=== PATIENT | female | born 1970 | race Caucasian/White ===

== ENCOUNTER → 2016-07-18 | Outpatient (CLI) | payer MEDICARE, OTHER ==
--- NOTE | 2016-07-19 11:33 | MM ---
Reason for exam: screening (asymptomatic). Last mammogram was performed 1 year and 4 months ago. History: Took hormonal contraceptives for 1 year beginning at age 20. Physical Findings: A clinical breast exam by your physician is recommended on an annual basis and results should be correlated with mammographic findings. MG 3D Screening Mammo W/Cad Bilateral CC and MLO view(s) were taken. Prior study comparison: March 04, 2015, bilateral MG screening mammo w CAD. The breast tissue is heterogeneously dense. This may lower the sensitivity of mammography. No significant changes when compared with prior studies. ASSESSMENT: Negative, BI-RAD 1 RECOMMENDATION: Routine screening mammogram of both breasts in 1 year.
== END | disposition home or self-care (01) ==
LOC: RADMAMWWP 10:08
PROVIDERS: ATTEND Family Medicine
DX: Z12.31 Encounter for screening mammogram for malignant neoplasm of breast (principal)
CPT/HCPCS: 77063; G0202

== ENCOUNTER 2016-10-23 20:13 | Emergency (ER) | payer MEDICARE, OTHER ==
[2016-10-23 20:30] VITALS: BP 161/89; PULSE 91; RESP 18; TEMP 98.2
--- NOTE | 2016-10-23 20:35 | ED ---
Eye Problem HPI - General Chief complaint: Eye Problems Stated complaint: "pink eye" Time Seen by Provider: 10/23/16 20:31 Source: patient, RN notes reviewed Mode of arrival: ambulatory Limitations: no limitations - History of Present Illness Initial comments: 46-year-old female presents for a red irritated eye with purulent type drainage. Patient states it was crusted shut. Patient states it is itching. Patient states she believes she has pinkeye. Patient denies any changes in vision. Patient states she is not currently having any other symptoms at this time. Patient denies any recent fever, chills, shortness of breath, chest pain, back pain, abdominal pain, nausea vomiting, numbness or tingling, dysuria or hematuria, constipation or diarrhea, headaches or visual changes, or any other current symptoms. - Related Data Home Medications Medication Instructions Recorded Confirmed Beclomethasone Dipropionate [Qvar 1 dose INHALATION DIRECTED PRN 01/22/14 80 mcg/puff] Cholecalciferol [Vitamin D3] 1,000 units PO DAILY 01/22/14 03/09/16 Etodolac [Lodine] 400 mg PO BID 01/22/14 02/06/16 Gabapentin [Gabapentin] 400 mg PO BID 01/22/14 03/09/16 Lisinopril [Lisinopril] 40 mg PO BID 01/22/14 03/09/16 Loratadine [Loratadine] 10 mg PO DAILY 01/22/14 03/09/16 Potassium Gluconate 99 mg PO DAILY 01/22/14 03/09/16 amLODIPine [amLODIPine] 10 mg PO DAILY 01/22/14 03/09/16 cloNIDine HCL [cloNIDine HCL] 0.3 mg PO DAILY 01/22/14 03/09/16 Budesonide-Formot 160-4.5 Mcg 2 puff INHALATION BID 03/04/14 03/09/16 [Symbicort 160-4.5 Mcg Inhaler] Previous Rx's Medication Instructions Recorded Albuterol Sulfate (Bottle) 5 mg INHALATION Q4-6H #20 nebu 01/22/14 [Ventolin] Sulfamethoxazole/Trimethoprim 1 each PO Q12H #20 tab 12/24/14 [Bactrim DS 800-160 mg] Albuterol Nebulized [Ventolin 2.5 mg INHALATION Q6H #24 nebu 04/04/15 Nebulized] Acetaminophen with Codeine 1 tab PO Q4H PRN #20 tab 03/10/16 [Tylenol w/codeine #3] Sulfamethoxazole/Trimethoprim 1 tab PO Q12H #8 tab 03/10/16 [Bactrim DS 800-160 mg] Tobramycin 0.3% Ophth Oint [Tobrex 1 applic BOTH EYES TID #1 tube 10/23/16 0.3% Ophth Oint] Allergies Allergy/AdvReac Type Severity Reaction Status Date / Time prochlorperazine edisylate Allergy Anaphylaxis Verified 03/09/16 23:44 [From Compazine] prochlorperazine maleate Allergy Anaphylaxis Verified 03/09/16 23:44 [From Compazine] morphine AdvReac Nausea & Verified 10/23/16 20:30 Vomiting Review of Systems ROS Statement: Those systems with pertinent positive or pertinent negative responses have been documented in the HPI. ROS Other: All systems not noted in ROS Statement are negative. Past Medical History Past Medical History: Asthma, Fibromyalgia, Hypertension Additional Past Medical History / Comment(s): ARTHRITIS, CONCUSSION, UTI History of Any Multi-Drug Resistant Organisms: ESBL Date of last positivie culture/infection: 03/23/2014 MDRO Source:: Urine-ESBL E.coli Past Surgical History: Hysterectomy, Orthopedic Surgery, Tubal Ligation Additional Past Surgical History / Comment(s): gastric sleep Past Psychological History: Depression Smoking Status: Never smoker Past Alcohol Use History: Rare Past Drug Use History: None Reported General Exam Limitations: no limitations General appearance: alert, in no apparent distress Head exam: Present: atraumatic, normocephalic, normal inspection Eye exam: Present: PERRL, EOMI, conjunctival injection, other (purulent Drainage noted). Absent: scleral icterus, periorbital swelling, periorbital tenderness Neck exam: Present: normal inspection. Absent: tenderness, meningismus, lymphadenopathy Respiratory exam: Present: normal lung sounds bilaterally. Absent: respiratory distress, wheezes, rales, rhonchi, stridor Cardiovascular Exam: Present: regular rate, normal rhythm, normal heart sounds. Absent: systolic murmur, diastolic murmur, rubs, gallop, clicks Neurological exam: Present: alert, oriented X3 Psychiatric exam: Present: normal affect, normal mood Skin exam: Present: warm, dry, intact, normal color. Absent: rash Course Vital Signs 10/23/16 20:28 Temperature 98.2 F Pulse Rate 91 Respiratory 18 Rate Blood Pressure 161/89 O2 Sat by Pulse 98 Oximetry Medical Decision Making - Medical Decision Making 46 shows no presents for what appears to be conjunctivitis. This time we'll start the patient on antibiotic ointment. We discussed follow-up return parameters. We discussed all patient's questions. She stated she understood and she isn't. Plan. She'll be discharged home. Disposition Clinical Impression: Bacterial conjunctivitis Disposition: HOME SELF-CARE Condition: Stable Instructions: Conjunctivitis (ED) Additional Instructions: Please use medication as discussed. Please follow up with family doctor if symptoms have not improved over the next two days. Please return to the emergency room if your symptoms increase or worsen or for any other concerns. Prescriptions: Tobramycin 0.3% Ophth Oint [Tobrex 0.3% Ophth Oint] 1 applic BOTH EYES TID #1 tube Referrals: Veronika Parada MD [Primary Care Provider] - 1-2 days Time of Disposition: 20:34
== END 2016-10-23 20:40 | disposition home or self-care (01) ==
LOC: EC 20:13
DX: H10.9 Unspecified conjunctivitis (principal); J45.909 Unspecified asthma, uncomplicated; M79.7 Fibromyalgia; I10 Essential (primary) hypertension; Z79.51 Long term (current) use of inhaled steroids; Z79.899 Other long term (current) drug therapy; Z88.5 Allergy status to narcotic agent; Z88.8 Allergy status to other drugs, medicaments and biological substances
CPT/HCPCS: 99283

== ENCOUNTER 2017-01-16 15:26 | Emergency (ER) | payer MEDICARE, OTHER ==
--- NOTE | 2017-01-16 16:06 | ED ---
General Adult HPI - General Chief complaint: Urogenital Stated complaint: UTI Time Seen by Provider: 01/16/17 15:53 Source: patient, RN notes reviewed Mode of arrival: ambulatory Limitations: no limitations - History of Present Illness Initial comments: Patient 46-year-old female who presents emergency room today with a chief complaint of UTI symptoms. Patient does admit that she's had increased urinary frequency. Increased dysuria. States the symptoms started approximately 45 days ago. She states she was using some [id number] medication of Azo along with cranberry pills. States she began feeling better. States symptoms returned this morning. Patient denies any other complaints or symptoms at this time. Patient denies any recent fever, chills, shortness of breath, chest pain, back pain, nausea or vomiting, numbness or tingling, constipation or diarrhea, headaches or visual changes, or any other complaints. - Related Data Home Medications Medication Instructions Recorded Confirmed Beclomethasone Dipropionate [Qvar 1 puff INHALATION RT-BID PRN 01/22/14 01/16/17 80 mcg/puff] Cholecalciferol [Vitamin D3] 1,000 units PO DAILY 01/22/14 01/16/17 Gabapentin [Gabapentin] 400 mg PO TID PRN 01/22/14 01/16/17 cloNIDine HCL [cloNIDine HCL] 0.3 mg PO HS PRN 01/22/14 01/16/17 Albuterol Nebulized [Ventolin 2.5 mg INHALATION RT-QID PRN 01/16/17 01/16/17 Nebulized] Cranberry Fruit Extract [Cranberry] 500 mg PO DAILY 01/16/17 01/16/17 Cyanocobalamin (Vitamin B-12) 2,500 mcg PO DAILY 01/16/17 01/16/17 [Vitamin B12] Cyclobenzaprine [Flexeril] 10 mg PO HS PRN 01/16/17 01/16/17 Glucosamine Sulfate 1,000 mg PO DAILY 01/16/17 01/16/17 Lisinopril [Zestril] 10 mg PO DAILY 01/16/17 01/16/17 Montelukast [Singulair] 10 mg PO HS 01/16/17 01/16/17 Omeprazole 20 mg PO DAILY 01/16/17 01/16/17 Previous Rx's Medication Instructions Recorded Ciprofloxacin HCl [Cipro] 500 mg PO Q12HR #20 day 01/16/17 Phenazopyridine [Pyridium] 100 mg PO TID 3 Days 01/16/17 Allergies Allergy/AdvReac Type Severity Reaction Status Date / Time prochlorperazine Allergy Anaphylaxis Verified 01/16/17 16:44 morphine AdvReac Nausea & Verified 01/16/17 16:44 Vomiting Blood Review of Systems ROS Statement: Those systems with pertinent positive or pertinent negative responses have been documented in the HPI. ROS Other: All systems not noted in ROS Statement are negative. Past Medical History Past Medical History: Asthma, Fibromyalgia, Hypertension Additional Past Medical History / Comment(s): ARTHRITIS, CONCUSSION, UTI History of Any Multi-Drug Resistant Organisms: ESBL Date of last positivie culture/infection: 03/23/2014 MDRO Source:: Urine-ESBL E.coli Past Surgical History: Hysterectomy, Orthopedic Surgery, Tubal Ligation Additional Past Surgical History / Comment(s): gastric sleep Past Psychological History: Depression Smoking Status: Never smoker Past Alcohol Use History: Rare Past Drug Use History: None Reported General Exam - General Exam Comments Initial Comments: General: The patient is awake and alert, in no distress, and does not appear acutely ill. Eye: Pupils are equal, round and reactive to light, extra-ocular movements are intact. No nystagmus. There is normal conjunctiva bilaterally. No signs of icterus. Ears, nose, mouth and throat: There are moist mucous membranes and no oral lesions. Neck: The neck is supple, there is no tenderness or JVD. Cardiovascular: There is a regular rate and rhythm. No murmur, rub or gallop is appreciated. Respiratory: Lungs are clear to auscultation, respirations are non-labored, breath sounds are equal. No wheezes, stridor, rales, or rhonchi. Gastrointestinal: Soft, non-distended, mild tenderness suprapubic over the bladder. There is no rebound or guarding present. No CVA tenderness. Bowel sounds are unremarkable. Musculoskeletal: Normal ROM, no tenderness. Strength 5/5. Sensation intact. Pulses equal bilaterally 2+. Neurological: A&O x 3. CN II-XII intact, There are no obvious motor or sensory deficits. Coordination appears grossly intact. Speech is normal. Skin: Skin is warm and dry and no rashes or lesions are noted. Psychiatric: Cooperative, appropriate mood & affect, normal judgment. Limitations: no limitations Course Vital Signs 01/16/17 01/16/17 15:36 16:50 Temperature 98.0 F 98.1 F Pulse Rate 90 81 Respiratory 20 18 Rate Blood Pressure 175/97 147/97 O2 Sat by Pulse 99 99 Oximetry Medical Decision Making - Medical Decision Making Patient reexamined at this time shows no signs of distress. Vital stable here in the emergency room. Patient given dose of Rocephin here in the ER. Urinalysis consistent with UTI. Culture pending. Patient be discharged home on antibiotics and Pyridium. Advised return for any fever, increase or worsen his symptoms. She states understanding and is in agreement. - Lab Data Lab Results 01/16/17 01/16/17 Range/Units 16:15 16:15 Urine Color Yellow Urine Appearance Cloudy H (Clear) Urine pH 5.5 (5.0-8.0) Ur Specific [place] 1.022 (1.001-1.035) Urine Protein 1+ H (Negative) Urine Glucose (UA) Negative (Negative) Urine Ketones Negative (Negative) Urine Blood Trace H (Negative) Urine Nitrite Negative (Negative) Urine Bilirubin Negative (Negative) Urine Urobilinogen <2.0 (<2.0) mg/dL Ur Leukocyte Esterase Large H (Negative) Urine RBC 5 (0-5) /hpf Urine WBC 108 H (0-5) /hpf Ur Squamous Epith Cells 5 H (0-4) /hpf Urine Bacteria Few H (None) /hpf Urine Mucus Rare H (None) /hpf Urine Yeast (Budding) Occasional H (None) /hpf Urine HCG, Qual Not Detected (Not Detectd) Disposition Clinical Impression: UTI (urinary tract infection) Disposition: HOME SELF-CARE Condition: Good Instructions: Urinary Tract Infection in Women (ED) Additional Instructions: Please use medication as discussed. Please follow-up with family doctor in the next 2 days of symptoms have not improved. Please return to emergency room if the symptoms increase or worsen or for any other concerns. Prescriptions: Ciprofloxacin HCl [Cipro] 500 mg PO Q12HR #20 day Phenazopyridine [Pyridium] 100 mg PO TID 3 Days Referrals: Veronika Parada MD [Primary Care Provider] - 1-2 days Time of Disposition: 16:56
[2017-01-16 16:48] LABS: Appearance,Urine Cloudy (Clear); Bacteria,Urine Few /hpf; Bilirubin,Urine Negative (Negative); Glucose,Urine (UA) Negative (Negative); Ketones,Urine Negative (Negative); Leukocyte Esterase,Urine Large (Negative); Mucus,Urine Rare /hpf; Nitrite,Urine Negative (Negative); PH, Urine 5.5 (5.0-8.0); Particle Count 3055; Protein,Urine 1+ (Negative); RBC,Urine 5 /hpf (0-5); Specific Gravity,Urine 1.022 (1.001-1.035); Squamous Epithelial Cell,Urine 5 /hpf (0-4); UA Billing (MACRO vs. MICRO) MICRO; Urobilinogen,Urine <2.0 mg/dL (<2.0); WBC,Urine 108 /hpf (0-5)
[2017-01-16 16:51] VITALS: BP 147/97; PULSE 81; RESP 18; TEMP 98.1
[2017-01-16] MEDS ORDERED: cefTRIAXone 1,000 MG VIAL (IM USE) IM STA (16:55)
== END 2017-01-16 17:13 | disposition home or self-care (01) ==
LOC: EC 15:26
DX: N39.0 Urinary tract infection, site not specified (principal); I10 Essential (primary) hypertension; J45.909 Unspecified asthma, uncomplicated; M19.90 Unspecified osteoarthritis, unspecified site; Z79.899 Other long term (current) drug therapy; Z88.5 Allergy status to narcotic agent; Z88.8 Allergy status to other drugs, medicaments and biological substances
CPT/HCPCS: 81001; 81025; 87086; 99283; 96372; J0696; 87077; 87186

== ENCOUNTER 2017-02-23 17:47 | Emergency (ER) | payer MEDICARE, OTHER ==
[2017-02-23 17:54] VITALS: BP 149/91; PULSE 88; RESP 20; TEMP 98.2
--- NOTE | 2017-02-23 18:02 | ED ---
ENT HPI - General Chief complaint: Dental/Oral Stated complaint: mouth pain Time Seen by Provider: 02/23/17 17:55 Source: patient, RN notes reviewed Mode of arrival: ambulatory Limitations: no limitations - History of Present Illness Initial comments: 46-year-old female presents emergency Department chief complaint of left-sided facial pain, dental pain. Patient states started last 24 hours worsen. She states she has been taking Tylenol does alleviate some the symptoms. She states that also when she brushes her gum that makes it feel better. Patient denies fever, chills, night sweats, headache or dizziness. Denies any neck stiffness or neck pain. Patient denies any sore throat, difficulty swallowing at this time. Patient states she did see her dentist a few months back and had some fillings. - Related Data Home Medications Medication Instructions Recorded Confirmed Beclomethasone Dipropionate [Qvar 1 puff INHALATION RT-BID PRN 01/22/14 02/23/17 80 mcg/puff] Cholecalciferol [Vitamin D3] 1,000 units PO DAILY 01/22/14 02/23/17 Gabapentin [Gabapentin] 400 mg PO TID PRN 01/22/14 02/23/17 cloNIDine HCL [cloNIDine HCL] 0.3 mg PO HS PRN 01/22/14 02/23/17 Albuterol Nebulized [Ventolin 2.5 mg INHALATION RT-QID PRN 01/16/17 02/23/17 Nebulized] Cranberry Fruit Extract [Cranberry] 500 mg PO DAILY 01/16/17 02/23/17 Cyanocobalamin (Vitamin B-12) 2,500 mcg PO DAILY 01/16/17 02/23/17 [Vitamin B12] Cyclobenzaprine [Flexeril] 10 mg PO HS PRN 01/16/17 02/23/17 Glucosamine Sulfate 1,000 mg PO DAILY 01/16/17 02/23/17 Lisinopril [Zestril] 10 mg PO DAILY 01/16/17 02/23/17 Montelukast [Singulair] 10 mg PO HS 01/16/17 02/23/17 Omeprazole 20 mg PO DAILY 01/16/17 02/23/17 Previous Rx's Medication Instructions Recorded Ciprofloxacin HCl [Cipro] 500 mg PO Q12HR #20 day 01/16/17 Acetaminophen-Codeine 300-30mg 1 tab PO Q4H PRN #20 tablet 02/23/17 [Tylenol #3] Ibuprofen [Motrin] 600 mg PO Q8HR PRN #30 tab 02/23/17 Penicillin V Potassium [Pen Vee K] 500 mg PO QID #40 tab 02/23/17 Allergies Allergy/AdvReac Type Severity Reaction Status Date / Time prochlorperazine Allergy Anaphylaxis Verified 02/23/17 17:54 morphine AdvReac Nausea & Verified 02/23/17 17:54 Vomiting Blood Review of Systems ROS Statement: Those systems with pertinent positive or pertinent negative responses have been documented in the HPI. ROS Other: All systems not noted in ROS Statement are negative. Past Medical History Past Medical History: Asthma, Fibromyalgia, Hypertension Additional Past Medical History / Comment(s): ARTHRITIS, CONCUSSION, UTI History of Any Multi-Drug Resistant Organisms: ESBL Date of last positivie culture/infection: 03/23/2014 MDRO Source:: Urine-ESBL E.coli Past Surgical History: Hysterectomy, Orthopedic Surgery, Tubal Ligation Additional Past Surgical History / Comment(s): gastric sleep Past Psychological History: Depression Smoking Status: Never smoker Past Alcohol Use History: Rare Past Drug Use History: None Reported General Exam Limitations: no limitations General appearance: alert, in no apparent distress Head exam: Present: atraumatic, normocephalic, normal inspection Eye exam: Present: normal appearance, PERRL, EOMI. Absent: scleral icterus, conjunctival injection, periorbital swelling ENT exam: Present: mucous membranes moist, TM's normal bilaterally, normal external ear exam, other (Mild to moderate tenderness along the left side of the mandible with small localized area of swelling). Absent: normal oropharynx (Tenderness along the left lower dentition with no obvious drainable abscess she does have some mild swelling and erythema of the gumline) Neck exam: Present: normal inspection, full ROM. Absent: tenderness, meningismus, lymphadenopathy Respiratory exam: Present: normal lung sounds bilaterally. Absent: respiratory distress, wheezes, rales, rhonchi, stridor Cardiovascular Exam: Present: regular rate, normal rhythm, normal heart sounds. Absent: systolic murmur, diastolic murmur, rubs, gallop, clicks Course Vital Signs 02/23/17 17:52 Temperature 98.2 F Pulse Rate 88 Respiratory 20 Rate Blood Pressure 149/91 O2 Sat by Pulse 98 Oximetry Medical Decision Making - Medical Decision Making 46-year-old female presented for left sided facial pain. Patient appears to have a dental infection possible early dental abscess. Patient we starting antibiotics, pain medication and followed up with dentist on Saturday return parameters were discussed. Disposition Clinical Impression: Dental abscess, Toothache Disposition: HOME SELF-CARE Condition: Stable Instructions: Dental Abscess (ED) Additional Instructions: Please return to the Emergency Department if symptoms worsen or any other concerns. Prescriptions: Acetaminophen-Codeine 300-30mg [Tylenol #3] 1 tab PO Q4H PRN #20 tablet PRN Reason: pain Ibuprofen [Motrin] 600 mg PO Q8HR PRN #30 tab PRN Reason: Pain Penicillin V Potassium [Pen Vee K] 500 mg PO QID #40 tab Referrals: Veronika Parada MD [Primary Care Provider] - 1-2 days Time of Disposition: 18:02
== END 2017-02-23 18:09 | disposition home or self-care (01) ==
LOC: EC 17:47
DX: K04.7 Periapical abscess without sinus (principal); I10 Essential (primary) hypertension; J45.909 Unspecified asthma, uncomplicated; M19.90 Unspecified osteoarthritis, unspecified site; Z88.5 Allergy status to narcotic agent; Z88.8 Allergy status to other drugs, medicaments and biological substances; Z79.899 Other long term (current) drug therapy
CPT/HCPCS: 99282

== ENCOUNTER 2017-04-09 00:38 | Emergency (ER) | payer MEDICARE, OTHER ==
[2017-04-09] MEDS ORDERED: PENICILLIN V POTASSIUM 250 MG TAB PO STA (01:21)
[2017-04-09] MEDS ORDERED: ONDANSETRON ODT 4 MG TAB PO STA (01:21)
[2017-04-09] MEDS ORDERED: HYDROcodone/APAP 5-325MG 1 EACH TAB PO STA (01:21)
--- NOTE | 2017-04-09 01:25 | ED ---
ENT HPI - General Chief complaint: ENT Stated complaint: Dental Pain Time Seen by Provider: 04/09/17 01:18 Source: patient, RN notes reviewed Mode of arrival: ambulatory Limitations: no limitations - History of Present Illness Initial comments: 47-year-old female presents emergency Department with chief complaint of left upper dental pain. Patient had this one month ago follow-up with a dentist which dentist said that since her symptoms resolved that she did not need any procedures centimeters it returned that she may needed dental extraction or root canal. Patient states over the last few days she's had increased pain she states is so unbearable at this time that she's nauseated. Denies fevers or chills denies any neck pain or neck stiffness. - Related Data Home Medications Medication Instructions Recorded Confirmed Beclomethasone Dipropionate [Qvar 1 puff INHALATION RT-BID PRN 01/22/14 02/23/17 80 mcg/puff] Cholecalciferol [Vitamin D3] 1,000 units PO DAILY 01/22/14 02/23/17 Gabapentin [Gabapentin] 400 mg PO TID PRN 01/22/14 02/23/17 cloNIDine HCL [cloNIDine HCL] 0.3 mg PO HS PRN 01/22/14 02/23/17 Albuterol Nebulized [Ventolin 2.5 mg INHALATION RT-QID PRN 01/16/17 02/23/17 Nebulized] Cranberry Fruit Extract [Cranberry] 500 mg PO DAILY 01/16/17 02/23/17 Cyanocobalamin (Vitamin B-12) 2,500 mcg PO DAILY 01/16/17 02/23/17 [Vitamin B12] Cyclobenzaprine [Flexeril] 10 mg PO HS PRN 01/16/17 02/23/17 Glucosamine Sulfate 1,000 mg PO DAILY 01/16/17 02/23/17 Lisinopril [Zestril] 10 mg PO DAILY 01/16/17 02/23/17 Montelukast [Singulair] 10 mg PO HS 01/16/17 02/23/17 Omeprazole 20 mg PO DAILY 01/16/17 02/23/17 Previous Rx's Medication Instructions Recorded Penicillin V Potassium [Pen Vee K] 500 mg PO QID #40 tab 02/23/17 Acetaminophen-Codeine 300-30mg 1 tab PO Q4H PRN #20 tablet 10/24/17 [Tylenol #3] Ibuprofen [Motrin] 600 mg PO Q8HR PRN #30 tab 04/09/17 Ondansetron Odt [Zofran Odt] 4 mg PO Q8HR PRN #10 tab 04/09/17 Penicillin V Potassium [Pen Vee K] 500 mg PO QID #40 tablet 04/09/17 Allergies Allergy/AdvReac Type Severity Reaction Status Date / Time prochlorperazine Allergy Anaphylaxis Verified 04/09/17 00:48 morphine AdvReac Nausea & Verified 04/09/17 00:48 Vomiting Blood Review of Systems ROS Statement: Those systems with pertinent positive or pertinent negative responses have been documented in the HPI. ROS Other: All systems not noted in ROS Statement are negative. Past Medical History Past Medical History: Asthma, Fibromyalgia, Hypertension Additional Past Medical History / Comment(s): ARTHRITIS, CONCUSSION, UTI History of Any Multi-Drug Resistant Organisms: ESBL Date of last positivie culture/infection: 03/23/2014 MDRO Source:: Urine-ESBL E.coli Past Surgical History: Hysterectomy, Orthopedic Surgery, Tubal Ligation Additional Past Surgical History / Comment(s): gastric sleep Past Psychological History: Depression Smoking Status: Never smoker Past Alcohol Use History: Rare Past Drug Use History: None Reported General Exam Limitations: no limitations General appearance: alert, in no apparent distress Head exam: Present: atraumatic, normocephalic, normal inspection Eye exam: Present: normal appearance, PERRL, EOMI. Absent: scleral icterus, conjunctival injection, periorbital swelling ENT exam: Present: mucous membranes moist. Absent: normal oropharynx (there are dental fillings noted in the left upper region there is mild, recession erythema #19 and 20 no drainable abscess), other Neck exam: Present: normal inspection, full ROM. Absent: tenderness, meningismus, lymphadenopathy Respiratory exam: Present: normal lung sounds bilaterally. Absent: respiratory distress, wheezes, rales, rhonchi, stridor Cardiovascular Exam: Present: regular rate, normal rhythm, normal heart sounds. Absent: systolic murmur, diastolic murmur, rubs, gallop, clicks Course Vital Signs 04/09/17 00:45 Temperature 97.6 F Pulse Rate 77 Respiratory 20 Rate Blood Pressure 168/86 O2 Sat by Pulse 98 Oximetry Medical Decision Making - Medical Decision Making 47-year-old ludwin presented for dental pain. Patient is dental infection no abscess at this time. Patient was started on antibiotics pain medication and advised follow-up with dentist again. Return parameters. Disposition Clinical Impression: Dental infection, Pain, dental Disposition: HOME SELF-CARE Condition: Stable Instructions: Toothache (ED) Additional Instructions: Please return to the Emergency Department if symptoms worsen or any other concerns. Prescriptions: Acetaminophen-Codeine 300-30mg [Tylenol #3] 1 tab PO Q4H PRN #20 tablet PRN Reason: pain Ibuprofen [Motrin] 600 mg PO Q8HR PRN #30 tab PRN Reason: Pain Ondansetron Odt [Zofran Odt] 4 mg PO Q8HR PRN #10 tab PRN Reason: Nausea Penicillin V Potassium [Pen Vee K] 500 mg PO QID #40 tablet Referrals: Veronika Parada MD [Primary Care Provider] - 1-2 days Time of Disposition: 01:25
[2017-04-09 02:34] VITALS: BP 139/80; PULSE 64; RESP 16; TEMP 97
== END 2017-04-09 02:33 | disposition home or self-care (01) ==
LOC: EC 00:38
DX: K04.7 Periapical abscess without sinus (principal); R11.0 Nausea; M79.7 Fibromyalgia; I10 Essential (primary) hypertension; F32.9 Major depressive disorder, single episode, unspecified; Z79.899 Other long term (current) drug therapy; Z88.5 Allergy status to narcotic agent; Z88.8 Allergy status to other drugs, medicaments and biological substances
CPT/HCPCS: 99282

== ENCOUNTER 2017-07-09 20:16 | Emergency (ER) | payer MEDICARE, OTHER ==
[2017-07-09] MEDS ORDERED: PROPARACAINE 0.5% OPHTH DROPS 15 ML BTL BOTH EYES STA (21:32)
[2017-07-09] MEDS ORDERED: CIPROFLOXACIN 0.3% OPHTH SOLN 5 ML BTL LEFT EYE STA (22:07)
--- NOTE | 2017-07-09 22:24 | ED ---
Eye Problem HPI - General Chief complaint: Eye Problems Stated complaint: eye problems Time Seen by Provider: 07/09/17 21:08 Source: patient, RN notes reviewed, old records reviewed Mode of arrival: ambulatory Limitations: no limitations - History of Present Illness Initial comments: Patient is a 47-year-old female patient reports that she has left eye irriattion. She does wear contacts. She thinks that she may have scratched her eye while putting in contact yesterday. Reports that her eyes feel pain It's worse with bright lights. She denies any pain with consensual light. Patient states that she has no other symptoms. No significant Purulent drainage at this time. She reports her eyes is painful, denies significant pain or entrapemnet with EOM. - Related Data Home Medications Medication Instructions Recorded Confirmed Beclomethasone Dipropionate [Qvar 1 puff INHALATION RT-BID PRN 01/22/14 02/23/17 80 mcg/puff] Cholecalciferol [Vitamin D3] 1,000 units PO DAILY 01/22/14 02/23/17 Gabapentin [Gabapentin] 400 mg PO TID PRN 01/22/14 02/23/17 cloNIDine HCL [cloNIDine HCL] 0.3 mg PO HS PRN 01/22/14 02/23/17 Albuterol Nebulized [Ventolin 2.5 mg INHALATION RT-QID PRN 01/16/17 02/23/17 Nebulized] Cranberry Fruit Extract [Cranberry] 500 mg PO DAILY 01/16/17 02/23/17 Cyanocobalamin (Vitamin B-12) 2,500 mcg PO DAILY 01/16/17 02/23/17 [Vitamin B12] Cyclobenzaprine [Flexeril] 10 mg PO HS PRN 01/16/17 02/23/17 Glucosamine Sulfate 1,000 mg PO DAILY 01/16/17 02/23/17 Lisinopril [Zestril] 10 mg PO DAILY 01/16/17 02/23/17 Montelukast [Singulair] 10 mg PO HS 01/16/17 02/23/17 Omeprazole 20 mg PO DAILY 01/16/17 02/23/17 Previous Rx's Medication Instructions Recorded Penicillin V Potassium [Pen Vee K] 500 mg PO QID #40 tab 02/23/17 Acetaminophen-Codeine 300-30mg 1 tab PO Q4H PRN #20 tablet 04/09/17 [Tylenol #3] Ibuprofen [Motrin] 600 mg PO Q8HR PRN #30 tab 04/09/17 Ondansetron Odt [Zofran Odt] 4 mg PO Q8HR PRN #10 tab 04/09/17 Penicillin V Potassium [Pen Vee K] 500 mg PO QID #40 tablet 04/09/17 Ciprofloxacin Ophth Soln [Cipro 1 drops LEFT EYE Q4HR #1 bottle 07/09/17 Ophth Soln] Allergies Allergy/AdvReac Type Severity Reaction Status Date / Time prochlorperazine Allergy Anaphylaxis Verified 04/09/17 00:48 morphine AdvReac Nausea & Verified 04/09/17 00:48 Vomiting Blood Review of Systems ROS Statement: Those systems with pertinent positive or pertinent negative responses have been documented in the HPI. ROS Other: All systems not noted in ROS Statement are negative. Past Medical History Past Medical History: Asthma, Fibromyalgia, Hypertension Additional Past Medical History / Comment(s): ARTHRITIS, CONCUSSION, UTI History of Any Multi-Drug Resistant Organisms: ESBL Date of last positivie culture/infection: 03/23/2014 MDRO Source:: Urine-ESBL E.coli Past Surgical History: Hysterectomy, Orthopedic Surgery, Tubal Ligation Additional Past Surgical History / Comment(s): gastric sleep Past Psychological History: Depression Smoking Status: Never smoker Past Alcohol Use History: Rare Past Drug Use History: None Reported General Exam - General Exam Comments Initial Comments: This is a 47 year old female, no distress. Limitations: no limitations General appearance: alert, in no apparent distress Head exam: Present: atraumatic, normocephalic, normal inspection Eye exam: Present: normal appearance, PERRL, EOMI, other (left eye erythema, evidence of corneal abrasion over 6 oclock position. ). Absent: scleral icterus , conjunctival injection, periorbital swelling Expanded Eyelids: Normal Inspection: Left Pupils: Regular, Round: Left Sclera/Conjunctival: Injection: Left (left eye injection and patient has corneal abrasion over 6 oclock position. ) ENT exam: Present: normal exam, mucous membranes moist Neck exam: Present: normal inspection. Absent: tenderness, meningismus, lymphadenopathy Respiratory exam: Present: normal lung sounds bilaterally. Absent: respiratory distress, wheezes, rales, rhonchi, stridor Extremities exam: Present: normal inspection, full ROM, normal capillary refill. Absent: tenderness, pedal edema, joint swelling, calf tenderness Back exam: Present: normal inspection Course Vital Signs 07/09/17 07/09/17 20:54 22:45 Temperature 97.0 F L 98.0 F Pulse Rate 79 18 L Respiratory 18 78 H Rate Blood Pressure 182/110 133/87 O2 Sat by Pulse 99 99 Oximetry Medical Decision Making - Medical Decision Making 47 year old female with left eye irritation after having after puttnig contact in. She has not worn her contacts as of today. Patient undweent slit lamp exam , evidence of corneal abrasion. Patient has been placed on cipro drops, as well as advised to follow up with opthalmology. Patient advised to discontinue wearing contacts until symptoms have resolved. Advised on return parameters. Disposition Clinical Impression: Corneal abrasion Disposition: HOME SELF-CARE Condition: Good Instructions: Corneal Abrasion (ED) Additional Instructions: Plan antibiotic litmus the eye every 4 hours. Follow-up with ophthalmology. Return to emergency department if any alarming signs or symptoms occur. Prescriptions: Ciprofloxacin Ophth Soln [Cipro Ophth Soln] 1 drops LEFT EYE Q4HR #1 bottle Referrals: Veronika Parada MD [Primary Care Provider] - 1-2 days Art Guidry MD [STAFF PHYSICIAN] - 1-2 days Time of Disposition: 22:22
[2017-07-09 22:46] VITALS: BP 133/87; PULSE 18; RESP 78; TEMP 98
== END 2017-07-09 22:46 | disposition home or self-care (01) ==
LOC: EC 20:16
DX: S05.02XA Injury of conjunctiva and corneal abrasion without foreign body, left eye, initial encounter (principal); J45.909 Unspecified asthma, uncomplicated; I10 Essential (primary) hypertension; Z79.899 Other long term (current) drug therapy; Z88.8 Allergy status to other drugs, medicaments and biological substances; Z88.5 Allergy status to narcotic agent
CPT/HCPCS: 99283

== ENCOUNTER → 2017-08-08 | Outpatient (CLI) | payer MEDICARE, OTHER ==
--- NOTE | 2017-08-12 07:50 | MM ---
Reason for exam: screening (asymptomatic). Last mammogram was performed 1 year and 1 month ago. History: Took hormonal contraceptives for 1 year beginning at age 20. Physical Findings: A clinical breast exam by your physician is recommended on an annual basis and results should be correlated with mammographic findings. MG 3D Screening Mammo W/Cad Bilateral CC and MLO view(s) were taken. Prior study comparison: July 18, 2016, bilateral MG 3d screening mammo w/cad. March 04, 2015, bilateral MG screening mammo w CAD. There are scattered fibroglandular densities. No significant changes when compared with prior studies. ASSESSMENT: Negative, BI-RAD 1 RECOMMENDATION: Routine screening mammogram of both breasts in 1 year.
== END | disposition home or self-care (01) ==
LOC: RADMAMWWP 17:03
PROVIDERS: ATTEND Family Medicine
DX: Z12.31 Encounter for screening mammogram for malignant neoplasm of breast (principal)
CPT/HCPCS: 77063; 77067

== ENCOUNTER 2017-11-16 17:40 | Emergency (ER) | payer MEDICARE, OTHER ==
[2017-11-16 17:48] VITALS: BP 144/83; PULSE 92; RESP 18; TEMP 98.5
--- NOTE | 2017-11-16 18:06 | ED ---
Female Urogenital HPI - General Chief complaint: Urogenital Stated complaint: UTI Time Seen by Provider: 11/16/17 17:51 Source: patient Mode of arrival: ambulatory Limitations: no limitations - History of Present Illness Initial comments: 47-year-old female patient presents to the emergency department today for evaluation of urinary tract infection symptoms. Patient states that she has had urinary tract infections in the past and she feels similar. Patient states that she has been having urinary frequency, urinary urgency, and dysuria. States that she has had hot and cold chills today and has felt mildly nauseated. States that she does have low back pain however this is chronic for her. States she has been taking the urinary pain relief pills [id number] and they are no longer helping. She denies any hematuria with this. Denies any flank pain. Patient denies any recent rash, fever, shortness breath, chest pain, abdominal pain, diarrhea, constipation, numbness, tingling, dizziness, weakness, headache, visual changes, or any other complaints. - Related Data Home Medications Medication Instructions Recorded Confirmed Beclomethasone Dipropionate [Qvar 1 puff INHALATION RT-BID PRN 01/22/14 02/23/17 80 mcg/puff] Cholecalciferol [Vitamin D3] 1,000 units PO DAILY 01/22/14 02/23/17 Gabapentin [Gabapentin] 400 mg PO TID PRN 01/22/14 02/23/17 cloNIDine HCL [cloNIDine HCL] 0.3 mg PO HS PRN 01/22/14 02/23/17 Albuterol Nebulized [Ventolin 2.5 mg INHALATION RT-QID PRN 01/16/17 02/23/17 Nebulized] Cranberry Fruit Extract [Cranberry] 500 mg PO DAILY 01/16/17 02/23/17 Cyanocobalamin (Vitamin B-12) 2,500 mcg PO DAILY 01/16/17 02/23/17 [Vitamin B12] Cyclobenzaprine [Flexeril] 10 mg PO HS PRN 01/16/17 02/23/17 Glucosamine Sulfate 1,000 mg PO DAILY 01/16/17 02/23/17 Lisinopril [Zestril] 10 mg PO DAILY 01/16/17 02/23/17 Montelukast [Singulair] 10 mg PO HS 01/16/17 02/23/17 Omeprazole 20 mg PO DAILY 01/16/17 02/23/17 Previous Rx's Medication Instructions Recorded Penicillin V Potassium [Pen Vee K] 500 mg PO QID #40 tab 02/23/17 Acetaminophen-Codeine 300-30mg 1 tab PO Q4H PRN #20 tablet 04/09/17 [Tylenol #3] Ibuprofen [Motrin] 600 mg PO Q8HR PRN #30 tab 04/09/17 Ondansetron Odt [Zofran Odt] 4 mg PO Q8HR PRN #10 tab 04/09/17 Penicillin V Potassium [Pen Vee K] 500 mg PO QID #40 tablet 04/09/17 Ciprofloxacin Ophth Soln [Cipro 1 drops LEFT EYE Q4HR #1 bottle 07/09/17 Ophth Soln] Phenazopyridine [Pyridium] 100 mg PO TID #15 tablet 11/16/17 Sulfamethoxazole/Trimethoprim 1 each PO BID #14 tablet 11/16/17 [Bactrim DS 800-160 mg] Allergies Allergy/AdvReac Type Severity Reaction Status Date / Time prochlorperazine Allergy Anaphylaxis Verified 04/09/17 00:48 morphine AdvReac Nausea & Verified 04/09/17 00:48 Vomiting Blood Review of Systems ROS Statement: Those systems with pertinent positive or pertinent negative responses have been documented in the HPI. ROS Other: All systems not noted in ROS Statement are negative. Past Medical History Past Medical History: Asthma, Fibromyalgia, Hypertension Additional Past Medical History / Comment(s): ARTHRITIS, CONCUSSION, UTI History of Any Multi-Drug Resistant Organisms: ESBL Date of last positivie culture/infection: 03/23/2014 MDRO Source:: Urine-ESBL E.coli Past Surgical History: Hysterectomy, Orthopedic Surgery, Tubal Ligation Additional Past Surgical History / Comment(s): gastric sleep Past Psychological History: Depression Smoking Status: Never smoker Past Alcohol Use History: Rare Past Drug Use History: None Reported General Exam Limitations: no limitations General appearance: alert, in no apparent distress, other (This is a well- developed, well-nourished adult female patient in no acute distress. Vital signs upon presentation are temperature 98.5F, pulse 92, respirations 18, blood pressure 144/83, pulse ox 98% on room air.) Eye exam: Present: normal appearance, PERRL, EOMI. Absent: scleral icterus, conjunctival injection, periorbital swelling ENT exam: Present: normal exam, normal oropharynx, mucous membranes moist Respiratory exam: Present: normal lung sounds bilaterally. Absent: respiratory distress, wheezes, rales, rhonchi, stridor Cardiovascular Exam: Present: regular rate, normal rhythm, normal heart sounds. Absent: systolic murmur, diastolic murmur, rubs, gallop, clicks GI/Abdominal exam: Present: soft, tenderness (Suprapubic discomfort), normal bowel sounds. Absent: distended, guarding, rebound, rigid Back exam: Present: normal inspection, CVA tenderness (R). Absent: CVA tenderness (L) Neurological exam: Present: alert, oriented X3, CN II-XII intact Psychiatric exam: Present: normal affect, normal mood Skin exam: Present: warm, dry, intact, normal color. Absent: rash Course Vital Signs 11/16/17 17:46 Temperature 98.5 F Pulse Rate 92 Respiratory 18 Rate Blood Pressure 144/83 O2 Sat by Pulse 98 Oximetry Medical Decision Making - Medical Decision Making 47-year-old male patient presented to the emergency department today for complaints of dysuria, urinary urgency, urinary frequency. Physical examination did reveal some suprapubic tenderness. Patient did have some mild right CVA tenderness. Vital signs reviewed and were unremarkable. Urinalysis was obtained and showed a cloudy appearance with 1+ protein, trace blood, large leukocyte esterase, 23 red blood cells, 112 white blood cells, 5 squamous epithelial cells, rare bacteria, and rare mucous. We did send this for culture. Patient was started on Bactrim at this time. She is instructed to increase fluids. She is instructed to follow-up with her primary care physician for recheck and repeat urinalysis to ensure clearance of infection. Return parameters discussed in detail. She verbalizes understanding and agrees with this plan. - Lab Data Lab Results 11/16/17 Range/Units 18:05 Urine Color Dark Yellow Urine Appearance Cloudy H (Clear) Urine pH 6.5 (5.0-8.0) Ur Specific [place] 1.028 (1.001-1.035) Urine Protein 1+ H (Negative) Urine Glucose (UA) Negative (Negative) Urine Ketones Negative (Negative) Urine Blood Trace H (Negative) Urine Nitrite Negative (Negative) Urine Bilirubin Negative (Negative) Urine Urobilinogen 2.0 (<2.0) mg/dL Ur Leukocyte Esterase Large H (Negative) Urine RBC 23 H (0-5) /hpf Urine WBC 112 H (0-5) /hpf Ur Squamous Epith Cells 5 H (0-4) /hpf Urine Bacteria Rare H (None) /hpf Urine Mucus Rare H (None) /hpf Disposition Clinical Impression: Urinary tract infection Disposition: HOME SELF-CARE Condition: Good Instructions: Urinary Tract Infection in Women (ED) Additional Instructions: Increase fluids. Consider cranberry juice. Complete antibiotic prescription and full. Follow-up with primary care physician for repeat urine test once antibiotics are completed to ensure clearance of infection. Return here immediately for any new, worsening, or concerning symptoms. Prescriptions: Phenazopyridine [Pyridium] 100 mg PO TID #15 tablet Sulfamethoxazole/Trimethoprim [Bactrim DS 800-160 mg] 1 each PO BID #14 tablet Is patient prescribed a controlled substance at d/c from ED?: No Referrals: Veronika Parada MD [Primary Care Provider] - 1-2 days Time of Disposition: 18:36
[2017-11-16 18:32] LABS: Appearance,Urine Cloudy (Clear); Bacteria,Urine Rare /hpf; Bilirubin,Urine Negative (Negative); Blood,Urine Trace (Negative); Color,Urine Dark Yellow; Glucose,Urine (UA) Negative (Negative); Ketones,Urine Negative (Negative); Leukocyte Esterase,Urine Large (Negative); Mucus,Urine Rare /hpf; Nitrite,Urine Negative (Negative); PH, Urine 6.5 (5.0-8.0); Protein,Urine 1+ (Negative); RBC,Urine 23 /hpf (0-5); Specific Gravity,Urine 1.028 (1.001-1.035); Squamous Epithelial Cell,Urine 5 /hpf (0-4); WBC,Urine 112 /hpf (0-5)
[2017-11-16] MEDS ORDERED: SULFAMETHOX-TMP 800-160MG 1 EACH TAB PO STA (18:35)
== END 2017-11-16 18:49 | disposition home or self-care (01) ==
LOC: EC 17:40
DX: N39.0 Urinary tract infection, site not specified (principal); G89.29 Other chronic pain; M54.5 Low back pain; J45.909 Unspecified asthma, uncomplicated; I10 Essential (primary) hypertension; Z79.899 Other long term (current) drug therapy; Z88.5 Allergy status to narcotic agent; Z88.8 Allergy status to other drugs, medicaments and biological substances
CPT/HCPCS: 81001; 87086; 99283

== ENCOUNTER 2018-03-24 20:35 | Emergency (ER) | payer MEDICARE, OTHER ==
[2018-03-24 20:41] VITALS: BP 167/106; PULSE 99; RESP 16; TEMP 98.9
[2018-03-24] MEDS ORDERED: TOBRAMYCIN 0.3% OPHTH DROPS 5 ML BTL LEFT EYE STA (20:57)
--- NOTE | 2018-03-24 21:12 | ED ---
Female Urogenital HPI - General Source: patient, RN notes reviewed Mode of arrival: ambulatory Limitations: no limitations <Sadie Nagel - Last Filed: 03/24/18 21:47> <Tracy Wood - Last Filed: 03/24/18 22:14> - General Chief complaint: Urogenital Stated complaint: poss UTI and pink eye Time Seen by Provider: 03/24/18 20:48 - History of Present Illness Initial comments: This is a 48-year-old female who presents to the emergency department with chief complaint of possible urinary tract infection and pinkeye. Patient states that she is a gastric bypass patient. She states that since the surgery , whenever she does not drink enough water or starts new multivitamins, she developed urinary symptoms. She states that she usually takes Azo and the symptoms resolve. Patient states that she developed urinary frequency and dysuria on Saturday. She states that she took Azo and felt some relief on Saturday morning. She states by Saturday evening the symptoms had worsened. She reports having nausea and low back pain. Patient states that she spent all day yesterday in bed because she felt ill. She states that she alternates between feeling cold and hot and her highest recorded temperature was 99.7. Patient also reports waking up this morning with a crusty left eye. She states that it is itchy and red. She reports wearing contact lenses. She thinks she has pinkeye. Denies chest pain or shortness of breath, vomiting, diarrhea. (Sadie Nagel) - Related Data Home Medications Medication Instructions Recorded Confirmed Beclomethasone Dipropionate [Qvar 1 puff INHALATION RT-BID PRN 01/22/14 03/24/18 80 mcg/puff] Cholecalciferol [Vitamin D3] 1,000 units PO DAILY 01/22/14 03/24/18 Gabapentin 400 mg PO TID PRN 01/22/14 03/24/18 Albuterol Nebulized [Ventolin 2.5 mg INHALATION RT-QID PRN 01/16/17 03/24/18 Nebulized] Cyanocobalamin (Vitamin B-12) 2,500 mcg PO DAILY 01/16/17 03/24/18 [Vitamin B12] Cyclobenzaprine [Flexeril] 10 mg PO HS 01/16/17 03/24/18 Lisinopril [Zestril] 10 mg PO DAILY PRN 01/16/17 03/24/18 Montelukast [Singulair] 10 mg PO HS 01/16/17 03/24/18 Omeprazole 20 mg PO DAILY 01/16/17 03/24/18 Albuterol Inhaler [Ventolin Hfa 1 - 2 puff INHALATION RT-Q6H PRN 03/24/18 Inhaler] Magnesium(Unknown Dose) 1 tab PO HS 03/24/18 03/24/18 Pedi Multivit No.25/Folic Acid 600 mcg PO DAILY 03/24/18 03/24/18 [Flintstones Multivit Chew Tab] Vitamin C/Biotin [Hair, Skin and 1 tab PO DAILY 03/24/18 03/24/18 Nails] Previous Rx's Medication Instructions Recorded Phenazopyridine HCl [Pyridium] 100 mg PO TID #3 tab 03/24/18 Sulfamethox-Tmp 800-160Mg [Bactrim 1 tab PO Q12HR #10 tab 03/24/18 DS 800-160 mg] Allergies Allergy/AdvReac Type Severity Reaction Status Date / Time prochlorperazine Allergy Anaphylaxis Verified 03/24/18 20:53 morphine AdvReac Nausea & Verified 03/24/18 20:53 Vomiting Blood Review of Systems ROS Other: All systems not noted in ROS Statement are negative. <Sadie Nagel - Last Filed: 03/24/18 21:47> ROS Other: All systems not noted in ROS Statement are negative. <Tracy Wood - Last Filed: 03/24/18 22:14> ROS Statement: Those systems with pertinent positive or pertinent negative responses have been documented in the HPI. Past Medical History Past Medical History: Asthma, Fibromyalgia, Hypertension Additional Past Medical History / Comment(s): ARTHRITIS, CONCUSSION, UTI History of Any Multi-Drug Resistant Organisms: ESBL Date of last positivie culture/infection: 03/23/2014 MDRO Source:: Urine-ESBL E.coli Past Surgical History: Hysterectomy, Orthopedic Surgery, Tubal Ligation Additional Past Surgical History / Comment(s): gastric sleep Past Psychological History: Depression Smoking Status: Never smoker Past Alcohol Use History: Rare Past Drug Use History: None Reported <Sadie Nagel - Last Filed: 03/24/18 21:47> General Exam Limitations: no limitations <Sadie Nagel - Last Filed: 03/24/18 21:47> <Tracy Wood - Last Filed: 03/24/18 22:14> - General Exam Comments Initial Comments: General: Awake and alert, well-developed; in no apparent distress. Does not appear acutely ill. HEENT: Head atraumatic, normocephalic. Pupils are equal, round and reactive to light. Extraocular movements intact. Left conjunctiva is injected. No signs of foreign body. Oropharynx moist without erythema or exudate. Neck: Supple. Normal ROM. Cardiovascular: Regular rate and rhythm. No murmurs, rubs or gallops. Chest symmetrical. Respiratory: Lungs clear to auscultation bilaterally. No wheezes, rales or rhonchi. Normal respiratory effort with no use of accessory muscles. Abdomen: Soft, non-distended. Mild tenderness on palpation of suprapubic region. No rigidity, rebound or guarding. Normal bowel sounds in all 4 quadrants. No CVA tenderness bilaterally. Musculoskeletal: Normal ROM, no tenderness bilateral upper and lower extremities. Ambulating normally. Skin: [place], warm and dry without rashes or lesions. Neurological: Alert and oriented x3. CN II-XII grossly intact. Speech is fluent and answers are appropriate. No focal neuro deficits. Psychiatric: Normal mood and affect. No overt signs of depression or anxiety noted. (Sadie Nagel) Vital Signs 03/24/18 20:38 Temperature 98.9 F Pulse Rate 99 Respiratory 16 Rate Blood Pressure 167/106 O2 Sat by Pulse 98 Oximetry Medical Decision Making <Sadie Nagel - Last Filed: 03/24/18 21:47> <Tracy Wood - Last Filed: 03/24/18 22:14> - Medical Decision Making This is a 48-year-old female who presents to the emergency department with chief complaint of possible urinary tract infection and pink eye. Patient reports increased frequency and dysuria for 3 days. States she has had low- grade fever and low back pain. On physical examination, patient does not appear acutely ill. Her vital signs are stable and she is afebrile. There is mild tenderness on palpation of the suprapubic region without flank pain. UA does reveal evidence for infection with moderate leukocyte esterase and 35 white blood cells. Patient given a dose of Bactrim here in the emergency department. She will be discharged home with remainder of antibiotic course. Patient also complained of possible pinkeye. Left conjunctiva is injected. She reports crusting and itchiness. She is a contact lens wearer. She is provided with tobramycin drops and instructed to use every 4 hours for the next 5 days. Patient is in agreement with plan and voices understanding. She will be discharged home at this time. All questions answered. (Sadie Nagel) I was available for consultation in the emergency department. The history and physical exam were done by the midlevel provider. I was consulted for this patient's care. I reviewed the case with the midlevel provider and based on their presentation of the patient, I agree with the assessment, medical decision making and plan of care as documented. (Tracy Wood) - Lab Data Lab Results 03/24/18 Range/Units 21:19 Urine Color Yellow Urine Appearance Clear (Clear) Urine pH 5.5 (5.0-8.0) Ur Specific [place] 1.009 (1.001-1.035) Urine Protein Negative (Negative) Urine Glucose (UA) Negative (Negative) Urine Ketones Negative (Negative) Urine Blood Negative (Negative) Urine Nitrite Negative (Negative) Urine Bilirubin Negative (Negative) Urine Urobilinogen <2.0 (<2.0) mg/dL Ur Leukocyte Esterase Moderate H (Negative) Urine RBC 3 (0-5) /hpf Urine WBC 35 H (0-5) /hpf Ur Squamous Epith Cells 6 H (0-4) /hpf Urine Yeast (Budding) Occasional H (None) /hpf Disposition Is patient prescribed a controlled substance at d/c from ED?: No Time of Disposition: 21:51 <Sadie Nagel - Last Filed: 03/24/18 21:47> <Tracy Wood - Last Filed: 03/24/18 22:14> Clinical Impression: Urinary tract infection, Conjunctivitis Disposition: HOME SELF-CARE Condition: Good Instructions: Urinary Tract Infection in Women (ED), Conjunctivitis (ED) Additional Instructions: Please take medications as prescribed. Please use 1-2 drops of tobramycin every 4 hours for the next 5 days. Please follow up with primary care provider within 1-2 days. Return to emergency department if symptoms should worsen or any concerns arise. Prescriptions: Phenazopyridine HCl [Pyridium] 100 mg PO TID #3 tab Sulfamethox-Tmp 800-160Mg [Bactrim DS 800-160 mg] 1 tab PO Q12HR #10 tab Referrals: Veronika Parada MD [Primary Care Provider] - 1-2 days
[2018-03-24 21:34] LABS: Appearance,Urine Clear (Clear); Bilirubin,Urine Negative (Negative); Blood,Urine Negative (Negative); Budding Yeast,Urine Occasional /hpf; Color,Urine Yellow; Glucose,Urine (UA) Negative (Negative); Ketones,Urine Negative (Negative); Leukocyte Esterase,Urine Moderate (Negative); Nitrite,Urine Negative (Negative); PH, Urine 5.5 (5.0-8.0); Protein,Urine Negative (Negative); RBC,Urine 3 /hpf (0-5); Specific Gravity,Urine 1.009 (1.001-1.035); Squamous Epithelial Cell,Urine 6 /hpf (0-4); Urobilinogen,Urine <2.0 mg/dL (<2.0); WBC,Urine 35 /hpf (0-5)
[2018-03-24] MEDS ORDERED: SULFAMETHOX-TMP 800-160MG 1 EACH TAB PO STA (21:47)
== END 2018-03-24 22:11 | disposition home or self-care (01) ==
LOC: EC 20:35
DX: N39.0 Urinary tract infection, site not specified (principal); H10.9 Unspecified conjunctivitis; M54.5 Low back pain; J45.909 Unspecified asthma, uncomplicated; M79.7 Fibromyalgia; I10 Essential (primary) hypertension; M19.90 Unspecified osteoarthritis, unspecified site; Z79.899 Other long term (current) drug therapy; Z88.8 Allergy status to other drugs, medicaments and biological substances; Z88.5 Allergy status to narcotic agent; Z98.84 Bariatric surgery status
CPT/HCPCS: 81001; 99283

== ENCOUNTER 2018-07-09 14:12 | Emergency (ER) | payer MEDICARE, OTHER ==
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
[2018-07-09 16:16] LABS: Anion Gap 4 mmol/L; Blood Urea Nitrogen 13 mg/dL (7-17); Carbon Dioxide 27 mmol/L (22-30); Chloride 107 mmol/L (98-107); Glucose 90 mg/dL (74-99); Potassium 4.6 mmol/L (3.5-5.1); Sodium 138 mmol/L (137-145)
[2018-07-09 16:31] LABS: Basophils % (A) 1 %; Eosinophils # (A) 0.4 k/uL (0-0.7); Eosinophils % (A) 5 %; HCT 45.4 % (34.0-46.0); Lymphocytes # (A) 2.6 k/uL (1.0-4.8); Lymphocytes % (A) 32 %; MCH 29.2 pg (25.0-35.0); MCV 88.3 fL (80.0-100.0); Mean Platelet Volume 6.8; Monocytes # (A) 0.4 k/uL (0-1.0); Monocytes % (A) 5 %; Neutrophils # (A) 4.5 k/uL (1.3-7.7); Neutrophils % (A) 56 %; Platelet Count 329 k/uL (150-450); RBC 5.14 m/uL (3.80-5.40); RDW 13.2 % (11.5-15.5); WBC 8.1 k/uL (3.8-10.6)
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
[2018-07-09] MEDS ORDERED: ACET/COD 300 MG/30 MG STARTER PACK 6 TAB BTL PO STA (18:16)
[2018-07-09 18:45] VITALS: BP 147/82; PULSE 70; RESP 16; TEMP 98.3
== END 2018-07-09 18:40 | disposition home or self-care (01) ==
LOC: EC 14:12
DX: K11.20 Sialoadenitis, unspecified (principal); J45.909 Unspecified asthma, uncomplicated; I10 Essential (primary) hypertension; M79.7 Fibromyalgia; Z79.899 Other long term (current) drug therapy; Z88.5 Allergy status to narcotic agent; Z88.8 Allergy status to other drugs, medicaments and biological substances
CPT/HCPCS: 36415; 80048; 85025; 70481; 99284; 96365; 96366; J0696; Q9967

== ENCOUNTER → 2018-08-04 | Outpatient (CLI) | payer MEDICARE, OTHER | END | disposition home or self-care (01) | LOC: LABWHC1 13:15 | PROVIDERS: ATTEND Otolaryngology | DX: Z53.9 Procedure and treatment not carried out, unspecified reason (principal) ==

== ENCOUNTER → 2018-08-08 | Outpatient (CLI) | payer MEDICARE ==
[2018-08-08 18:39] LABS: Rheumatoid Factor 9 IU/mL (0-15)
[2018-08-08 20:20] LABS: Hemoglobin A1C 5.2 % (4.0-6.0)
== END | disposition home or self-care (01) ==
LOC: LABWHC1 13:28
PROVIDERS: ATTEND Otolaryngology
DX: R53.83 Other fatigue (principal); R68.2 Dry mouth, unspecified
CPT/HCPCS: 36415; 82947; 83036; 86038; 86235; 86431

== ENCOUNTER 2018-11-25 22:41 | Emergency (ER) | payer MEDICARE, OTHER ==
[2018-11-25 23:00] VITALS: BP 136/80; PULSE 97; RESP 17; TEMP 98.2
[2018-11-25] MEDS ORDERED: AMOXIC-POT CLAV 875-125MG 1 EACH TAB PO STA (23:31)
[2018-11-25] MEDS ORDERED: AMOXIC-POT CLAV 875MG STARTER 2 EACH TABLET PO STA (23:31)
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
== END 2018-11-26 00:09 | disposition home or self-care (01) ==
LOC: EC 22:41
DX: S01.91XA Laceration without foreign body of unspecified part of head, initial encounter (principal); S71.112A Laceration without foreign body, left thigh, initial encounter; S71.111A Laceration without foreign body, right thigh, initial encounter; J45.909 Unspecified asthma, uncomplicated; M79.7 Fibromyalgia; Z79.51 Long term (current) use of inhaled steroids; Z79.899 Other long term (current) drug therapy; Z88.5 Allergy status to narcotic agent; Z88.8 Allergy status to other drugs, medicaments and biological substances; W55.01XA Bitten by cat, initial encounter; Y93.89 Activity, other specified; Y92.89 Other specified places as the place of occurrence of the external cause
CPT/HCPCS: 99283

== ENCOUNTER 2018-12-04 14:12 | Emergency (ER) | payer MEDICARE, OTHER ==
[2018-12-04] MEDS ORDERED: KETOROLAC 30 MG/ML 1 ML VIAL IM STA (14:47)
[2018-12-04 14:50] VITALS: BP 145/95; TEMP 97.6
[2018-12-04 15:27] LABS: Appearance,Urine Turbid (Clear); Bacteria,Urine Rare /hpf; Bilirubin,Urine Negative (Negative); Blood,Urine Large (Negative); Color,Urine Dark Brown; Glucose,Urine (UA) Negative (Negative); Hyaline Casts,Urine 181 /lpf (0-2); Ketones,Urine Negative (Negative); Leukocyte Esterase,Urine Large (Negative); Mucus,Urine Moderate /hpf; Nitrite,Urine Negative (Negative); PH, Urine 5.5 (5.0-8.0); Protein,Urine 3+ (Negative); RBC,Urine >182 /hpf (0-5); WBC,Urine >182 /hpf (0-5)
--- NOTE | 2018-12-04 15:53 | ED ---
Female Urogenital HPI - General Chief complaint: Urogenital Stated complaint: UTI Time Seen by Provider: 12/04/18 14:19 Source: patient Mode of arrival: ambulatory Limitations: no limitations - History of Present Illness Initial comments: Patient is a 48-year-old female presents emergency Department with increased urgency or frequency and dysuria. Patient reports having the symptoms intermittently for one week. Patient reports taking Pyrimidine to alleviate the symptoms. Patient also reports generalized suprapubic pain that does not radiate to the abdomen. Patient denies nausea, vomiting, diarrhea, headache chest pain or chest tightness. Patient denies fever, chills or night sweats. Patient does not have a history of kidney stones, not taking hydrochlorothiazide and has good water intake. Patient does have a history of pyelonephritis. - Related Data Home Medications Medication Instructions Recorded Confirmed Cholecalciferol [Vitamin D3] 1,000 units PO DAILY 01/22/14 12/04/18 Gabapentin 400 mg PO BID 01/22/14 12/04/18 Cyanocobalamin (Vitamin B-12) 2,500 mcg PO DAILY 01/16/17 12/04/18 [Vitamin B12] Cyclobenzaprine [Flexeril] 10 mg PO HS 01/16/17 12/04/18 Montelukast [Singulair] 10 mg PO HS 01/16/17 12/04/18 Omeprazole 20 mg PO DAILY 01/16/17 12/04/18 Pedi Multivit No.25/Folic Acid 600 mcg PO DAILY 03/24/18 12/04/18 [Flintstones Multivit Chew Tab] Vitamin C/Biotin [Hair, Skin and 1 tab PO DAILY 03/24/18 12/04/18 Nails] Fluticasone Nasal [place] [Flonase 2 spr EA NOSTRIL DAILY 11/25/18 12/04/18 Nasal [place]] Magnesium 200 mg PO HS 11/25/18 12/04/18 Omeprazole 40 mg PO HS 11/25/18 12/04/18 Previous Rx's Medication Instructions Recorded Ciprofloxacin HCl [Cipro] 500 mg PO Q12HR #20 tablet 12/04/18 Allergies Allergy/AdvReac Type Severity Reaction Status Date / Time prochlorperazine Allergy Anaphylaxis Verified 12/04/18 14:41 morphine AdvReac Nausea & Verified 12/04/18 14:41 Vomiting Blood Review of Systems ROS Statement: Those systems with pertinent positive or pertinent negative responses have been documented in the HPI. ROS Other: All systems not noted in ROS Statement are negative. Past Medical History Past Medical History: Asthma, Fibromyalgia, Hypertension Additional Past Medical History / Comment(s): ARTHRITIS, CONCUSSION, UTI History of Any Multi-Drug Resistant Organisms: ESBL Date of last positivie culture/infection: 03/23/2014 MDRO Source:: Urine-ESBL E.coli Past Surgical History: Hysterectomy, Orthopedic Surgery, Tubal Ligation Additional Past Surgical History / Comment(s): gastric sleeve Past Psychological History: Depression Smoking Status: Never smoker Past Alcohol Use History: Rare Past Drug Use History: None Reported General Exam Limitations: no limitations General appearance: alert, in no apparent distress Head exam: Present: atraumatic, normocephalic, normal inspection Eye exam: Present: normal appearance, PERRL, EOMI Pupils: Present: normal accommodation ENT exam: Present: normal exam Neck exam: Present: normal inspection Respiratory exam: Present: normal lung sounds bilaterally Cardiovascular Exam: Present: regular rate, normal rhythm, normal heart sounds GI/Abdominal exam: Present: soft, normal bowel sounds, other (Suprapubic tenderness. Negative McBurney point tenderness, rebound tenderness, Rovsing or psoas.). Absent: distended, tenderness Extremities exam: Present: normal inspection, full ROM Back exam: Present: normal inspection, full ROM, CVA tenderness (L). Absent: CVA tenderness (R) Neurological exam: Present: alert, oriented X3 Psychiatric exam: Present: normal affect, normal mood Skin exam: Present: warm, intact, normal color Course Vital Signs 12/04/18 12/04/18 12/04/18 14:14 14:48 16:18 Temperature 98.4 F 97.6 F Pulse Rate 109 H 93 85 Respiratory 18 16 18 Rate Blood Pressure 147/95 145/95 145/95 O2 Sat by Pulse 96 93 L 97 Oximetry Medical Decision Making - Medical Decision Making Patient is a 48-year-old female presenting to emergency Department with increased frequency urgency dysuria. Although patient does not have a fever, the symptoms have been ongoing for approximately one week. Due to her previous history of pyelonephritis and physical examination with left flank pain, I am going to treat the patient prophylactically for pyelonephritis. Patient will prescribed Cipro. Patient advised to follow up with primary care. Patient advised to return to the emergency department if symptoms worsen. strict return parameters were thoroughly discussed with patient who is in agreement with the treatment plan. Possible side effects of Cipro were discussed. Case discussed physician. - Lab Data Lab Results 12/04/18 Range/Units 14:48 Urine Color Dark Brown Urine Appearance Turbid H (Clear) Urine pH 5.5 (5.0-8.0) Ur Specific [place] 1.030 (1.001-1.035) Urine Protein 3+ H (Negative) Urine Glucose (UA) Negative (Negative) Urine Ketones Negative (Negative) Urine Blood Large H (Negative) Urine Nitrite Negative (Negative) Urine Bilirubin Negative (Negative) Urine Urobilinogen 2.0 (<2.0) mg/dL Ur Leukocyte Esterase Large H (Negative) Urine RBC >182 H (0-5) /hpf Urine WBC >182 H (0-5) /hpf Urine Bacteria Rare H (None) /hpf Hyaline Casts 181 H (0-2) /lpf Urine Mucus Moderate H (None) /hpf Disposition Clinical Impression: Urinary tract infection Disposition: HOME SELF-CARE Condition: Stable Instructions (If sedation given, give patient instructions): Urinary Tract Infection in Women (ED), Kidney Infection (ED) Additional Instructions: Please take the medication as directed. Please follow up with primary care. Please return to emergency department if symptoms worsen. Prescriptions: Ciprofloxacin HCl [Cipro] 500 mg PO Q12HR #20 tablet Is patient prescribed a controlled substance at d/c from ED?: No Referrals: Veronika Parada MD [Primary Care Provider] - 1-2 days Time of Disposition: 15:59
[2018-12-04] MEDS ORDERED: cefTRIAXone 1,000 MG VIAL (IM USE) IM STA (15:56)
[2018-12-04 16:19] VITALS: PULSE 85; RESP 18
== END 2018-12-04 16:23 | disposition home or self-care (01) ==
LOC: EC 14:12
DX: N39.0 Urinary tract infection, site not specified (principal); R10.84 Generalized abdominal pain; J45.909 Unspecified asthma, uncomplicated; M79.7 Fibromyalgia; I10 Essential (primary) hypertension; F32.9 Major depressive disorder, single episode, unspecified; Z79.899 Other long term (current) drug therapy; Z88.5 Allergy status to narcotic agent; Z88.8 Allergy status to other drugs, medicaments and biological substances; Z90.710 Acquired absence of both cervix and uterus; Z98.51 Tubal ligation status
CPT/HCPCS: 81001; 99283; 96372 ×2; J0696; J1885

== ENCOUNTER → 2019-04-22 | Outpatient (CLI) | payer MEDICARE, OTHER ==
[2019-04-22 16:10] LABS: Basophils # (A) 0.1 k/uL (0-0.2); Basophils % (A) 1 %; Eosinophils # (A) 0.3 k/uL (0-0.7); Eosinophils % (A) 4 %; HCT 45.2 % (34.0-46.0); HGB 14.4 gm/dL (11.4-16.0); Lymphocytes # (A) 2.8 k/uL (1.0-4.8); Lymphocytes % (A) 34 %; MCH 28.3 pg (25.0-35.0); MCHC 31.8 g/dL (31.0-37.0); Mean Platelet Volume 6.3; Monocytes # (A) 0.3 k/uL (0-1.0); Monocytes % (A) 4 %; Neutrophils # (A) 4.4 k/uL (1.3-7.7); Neutrophils % (A) 54 %; Platelet Count 312 k/uL (150-450); RBC 5.09 m/uL (3.80-5.40); RDW 13.5 % (11.5-15.5); WBC 8.2 k/uL (3.8-10.6)
[2019-04-23 01:41] LABS: % Iron Saturation 9.59 (12.00-45.00); ALT 24 U/L (8-44); AST 19 U/L (13-35); Albumin/Globulin Ratio 2.25 (1.60-3.17); Alkaline Phosphatase 55 U/L (41-126); BUN/Creat Ratio 13.33 Ratio (12.00-20.00); Calcium 8.9 mg/dL (8.7-10.3); Carbon Dioxide 25.1 mmol/L (21.6-31.8); Chloride 108 mmol/L (96-109); Folate, Serum >24.0 ng/mL; Globulin 1.6 g/dL (1.6-3.3); Glucose 93 mg/dL (70-110); Iron 26 ug/dL (50-170); Potassium 3.8 mmol/L (3.5-5.5); Sodium 142 mmol/L (135-145); Total Bilirubin 0.1 mg/dL (0.2-1.2); Total Iron Binding Capacity 271 ug/dL (228-460); Total Protein 5.2 g/dL (6.2-8.2)
== END | disposition home or self-care (01) ==
LOC: LABWHC1 14:51
PROVIDERS: ATTEND Surgery
DX: K90.9 Intestinal malabsorption, unspecified (principal); E56.9 Vitamin deficiency, unspecified
CPT/HCPCS: 36415; 80053; 82306; 82607; 82746; 83540; 83550; 84466; 85025

== ENCOUNTER 2019-08-17 14:41 | Emergency (ER) | payer MEDICARE, OTHER ==
[2019-08-17 15:05] VITALS: RESP 18
--- NOTE | 2019-08-17 15:49 | ED ---
ENT HPI - General Chief complaint: ENT Stated complaint: poss strep throat Time Seen by Provider: 08/17/19 15:18 Source: patient Mode of arrival: ambulatory Limitations: no limitations - History of Present Illness Initial comments: 49-year-old female presenting for possible strep. Patient states she has history for throat for the past 1-2 days. Patient states that everyone in the hospital for similar symptoms. Patient states that she has a slight cough but otherwise no other symptoms and as a difficulty swallowing breathing denies drooling or difficulty tolerating oral secretions patient denies any rashes chest pain neck stiffness. Remainderis negative upon arrival patient appears well no signs of acute distress - Related Data Home Medications Medication Instructions Recorded Confirmed Cholecalciferol [Vitamin D3] 1,000 units PO DAILY 01/22/14 12/04/18 Gabapentin 400 mg PO BID 01/22/14 12/04/18 Cyanocobalamin (Vitamin B-12) 2,500 mcg PO DAILY 01/16/17 12/04/18 [Vitamin B12] Cyclobenzaprine [Flexeril] 10 mg PO HS 01/16/17 12/04/18 Montelukast [Singulair] 10 mg PO HS 01/16/17 12/04/18 Omeprazole 20 mg PO DAILY 01/16/17 12/04/18 Pedi Multivit No.25/Folic Acid 600 mcg PO DAILY 03/24/18 12/04/18 [Flintstones Multivit Chew Tab] Vitamin C/Biotin [Hair, Skin and 1 tab PO DAILY 03/24/18 12/04/18 Nails] Fluticasone Nasal [place] [Flonase 2 spr EA NOSTRIL DAILY 11/25/18 12/04/18 Nasal [place]] Magnesium 200 mg PO HS 11/25/18 12/04/18 Omeprazole 40 mg PO HS 11/25/18 12/04/18 Previous Rx's Medication Instructions Recorded Ciprofloxacin HCl [Cipro] 500 mg PO Q12HR #20 tablet 12/04/18 Oseltamivir [Tamiflu] 75 mg PO Q12HR 5 Days #10 cap 08/17/19 Allergies Allergy/AdvReac Type Severity Reaction Status Date / Time prochlorperazine Allergy Anaphylaxis Verified 12/04/18 14:41 morphine AdvReac Nausea & Verified 12/04/18 14:41 Vomiting Blood Review of Systems ROS Statement: Those systems with pertinent positive or pertinent negative responses have been documented in the HPI. ROS Other: All systems not noted in ROS Statement are negative. Past Medical History Past Medical History: Asthma, Fibromyalgia, Hypertension Additional Past Medical History / Comment(s): ARTHRITIS, CONCUSSION, UTI History of Any Multi-Drug Resistant Organisms: ESBL Date of last positivie culture/infection: 03/23/2014 MDRO Source:: Urine-ESBL E.coli Past Surgical History: Hysterectomy, Orthopedic Surgery, Tubal Ligation Additional Past Surgical History / Comment(s): gastric sleeve Past Psychological History: Depression Smoking Status: Never smoker Past Alcohol Use History: Rare Past Drug Use History: None Reported General Exam - General Exam Comments Initial Comments: General: The patient is awake and alert, in no distress, and does not appear acutely ill. Eye: +3 mm pupils are equal, round and reactive to light, extra-ocular movements are intact. No nystagmus. There is normal conjunctiva bilaterally. No signs of icterus. No photophobia Ears, nose, mouth and throat: There are moist mucous membranes and no oral lesions. Oropharynx was mildly erythematous there is no tonsillar enlargement exudates or lesions. Uvula midline. Tympanic membranes are not erythematous or is no effusions bulging or retraction. No tenderness to palpation of the mastoid. No anterior cervical lymphadenopathy. Rhinorrhea, clear and bilateral nares. No tripoding, no drooling. Neck: The neck is supple, there is no tenderness or JVD. No nuchal rigidity Cardiovascular: There is a regular rate and rhythm. No murmur, rub or gallop is appreciated. Respiratory: Lungs are clear to auscultation, respirations are non-labored, breath sounds are equal. No wheezes, stridor, rales, or rhonchi. No retractions or abdominal breathing. Gastrointestinal: Soft, non-distended, non-tender abdomen without masses or organomegaly noted. There is no rebound or guarding present. Bowel sounds are unremarkable. Musculoskeletal: Normal ROM, no tenderness. Strength 5/5. Sensation intact. Radial pulses equal bilaterally 2+. Neurological: A&O x 3. CN II-XII intact grossly, There are no obvious motor or sensory deficits. Coordination appears grossly intact. Speech appears normal, no muffling. Skin: Skin is warm and dry and no rashes or lesions are noted. No extremity edema Psychiatric: Cooperative Limitations: no limitations Course Vital Signs 08/17/19 08/17/19 15:02 16:35 Temperature 99.1 F 99.0 F Pulse Rate 88 70 Respiratory 18 18 Rate Blood Pressure 162/96 166/106 O2 Sat by Pulse 98 100 Oximetry Medical Decision Making - Medical Decision Making 49-year-old female presenting today for chief complaint of sore throat. Strep negative. Patient being evaluated with patient in same room and househould influenza+. As they have similar symptoms and similar onset patient be treated with Tamiflu. Patient's lungs clear she is in no respiratory distress she is not toxic at this time feel she is stable for discharge with symptomatic treatment which was discussed with patient as well as return parameters. I discussed the importance of follow-up with primary care provider case is discussed with Dr. Gutierrez and patient was discharged appearing well - Lab Data Lab Results 08/17/19 Range/Units 15:14 Influenza Type A RNA Not Detected (Not Detectd) Influenza Type B (PCR) Not Detected (Not Detectd) Group A Strep Rapid Negative (Negative) Disposition Clinical Impression: Exposure to influenza, Sore throat Disposition: HOME SELF-CARE Condition: Good Instructions (If sedation given, give patient instructions): Influenza (ED) Additional Instructions: Please use medication as discussed. Please follow-up with family doctor in the next 2 days. Please return to emergency room if the symptoms increase or worsen or for any other concerns-difficulty in breathing. Prescriptions: Oseltamivir [Tamiflu] 75 mg PO Q12HR 5 Days #10 cap Is patient prescribed a controlled substance at d/c from ED?: No Referrals: Veronika Parada MD [Primary Care Provider] - 1-2 days Time of Disposition: 15:48
[2019-08-17 16:51] VITALS: BP 166/106; PULSE 70; TEMP 99
== END 2019-08-17 16:35 | disposition home or self-care (01) ==
LOC: EC 14:41
DX: Z20.828 Contact with and (suspected) exposure to other viral communicable diseases (principal); J02.9 Acute pharyngitis, unspecified; R05 Cough; J45.909 Unspecified asthma, uncomplicated; M79.7 Fibromyalgia; Z79.899 Other long term (current) drug therapy; Z88.8 Allergy status to other drugs, medicaments and biological substances; Z88.5 Allergy status to narcotic agent
CPT/HCPCS: 87081; 87430; 87502; 99283

== ENCOUNTER → 2019-09-02 | Outpatient (CLI) | payer MEDICARE, OTHER ==
--- NOTE | 2019-09-03 09:09 | MM ---
Reason for exam: screening (asymptomatic). Last mammogram was performed 2 years and 1 month ago. History: Took hormonal contraceptives for 1 year beginning at age 20. Physical Findings: A clinical breast exam by your physician is recommended on an annual basis and results should be correlated with mammographic findings. MG 3D Screening Mammo W/Cad Bilateral CC and MLO view(s) were taken. Prior study comparison: August 08, 2017, bilateral MG 3d screening mammo w/cad. July 18, 2016, bilateral MG 3d screening mammo w/cad. The breast tissue is heterogeneously dense. This may lower the sensitivity of mammography. There are benign appearing round calcifications bilaterally. There is chronic nodularity in the left breast. There is no discrete abnormality. ASSESSMENT: Benign, BI-RAD 2 RECOMMENDATION: Routine screening mammogram of both breasts in 1 year.
== END | disposition home or self-care (01) ==
LOC: RADMAMWWP 12:54
PROVIDERS: ATTEND Family Medicine
DX: Z12.31 Encounter for screening mammogram for malignant neoplasm of breast (principal)
CPT/HCPCS: 77063; 77067

== ENCOUNTER → 2019-11-13 | Outpatient (CLI) | payer MEDICARE, OTHER | END | disposition home or self-care (01) | LOC: LABWHC1 13:06 | PROVIDERS: ATTEND Internal Medicine Gastroenterology | DX: K52.9 Noninfective gastroenteritis and colitis, unspecified (principal) | CPT/HCPCS: 36415; 83516; 85652; 86140 ==

== ENCOUNTER → 2019-11-13 | Outpatient (CLI) | payer MEDICARE, OTHER | END | disposition home or self-care (01) | LOC: LABWHC1 13:02 | PROVIDERS: ATTEND Internal Medicine Gastroenterology | DX: Z11.59 Encounter for screening for other viral diseases (principal) ==

== ENCOUNTER 2019-11-18 09:11 | Day surgery (SDC) | payer MEDICARE, OTHER ==
[2019-11-17 10:02] VITALS: BMI 31.6
[~2019-11-18 09:11] MED LIST: LACTATED RINGERS 1,000 ML IV SCH; LIDOCAINE 1% (10MG/ML) FOR IV START INTRADERMA PRN
[2019-11-18 09:59] LABS: Glucose,Whole Blood 91 mg/dL (75-99)
[2019-11-18 10:01] VITALS: TEMP 97.8
[2019-11-18] MEDS ORDERED: PROPOFOL 10 MG/ML 20 ML VIAL IV ONE (10:04)
[2019-11-18] MEDS ORDERED: MIDAZOLAM 2 MG/2 ML VIAL ONE (10:04)
[2019-11-18] MEDS ORDERED: fentaNYL (PF) 50 MCG/ML 2 ML AMP ONE (10:04)
--- NOTE | 2019-11-18 10:25 | P.PCN ---
Date of Procedure: 11/18/19 Procedure(s) Performed: BRIEF HISTORY: Patient is a 49-year-old pleasant white female scheduled for an elective colonoscopy as a part of evaluation of chronic diarrhea for the last few months duration. PROCEDURE PERFORMED: Colonoscopy with snare polypectomy. PREOPERATIVE DIAGNOSIS: Chronic diarrhea for the last 6 months duration. IV sedation per Anesthesia. PROCEDURE: After informed consent was obtained, the patient, was brought into the endoscopy unit. IV sedation was administered by Anesthesia under continuous monitoring. Digital rectal examination was normal. Initially the Olympus CF-160 flexible video colonoscope was then inserted in the rectum, gradually advanced into the cecum without any difficulty. Careful examination was performed as the scope was gradually being withdrawn. Ileocecal valve and the appendiceal orifice were visualized and appeared normal. Prep was excellent. Mucosa of the cecum, ascending colon, transverse colon appeared normal. Ascending colon there was a 7-8 mm polyp that was removed by snare polypectomy. Rest of the, descending colon, sigmoid colon, and rectum appeared normal. Random biopsies were done from ascending and descending colon to rule out microscopic/collagenous colitis. Retroflexion was performed in the rectum and no lesions were seen. The patient tolerated the procedure well. IMPRESSION: 7-8 mm ascending colon polyp status post polypectomy Rest of the colon appeared normal RECOMMENDATIONS: Findings of this examination were discussed with the patient as well as her family. She was advised to follow with the biopsy results. She'll be seen in office in 3-4 weeks.
[2019-11-18 10:40] VITALS: BP 136/88; PULSE 87; RESP 20
== END 2019-11-18 11:09 | disposition home or self-care (01) ==
LOC: ORWHC2ENDO 09:11
PROVIDERS: ATTEND Internal Medicine Gastroenterology
DX: D12.4 Benign neoplasm of descending colon (principal); K62.89 Other specified diseases of anus and rectum; K52.9 Noninfective gastroenteritis and colitis, unspecified; J45.909 Unspecified asthma, uncomplicated; G47.33 Obstructive sleep apnea (adult) (pediatric); M79.7 Fibromyalgia; F41.9 Anxiety disorder, unspecified; F32.9 Major depressive disorder, single episode, unspecified; M19.90 Unspecified osteoarthritis, unspecified site; K21.9 Gastro-esophageal reflux disease without esophagitis; Z98.84 Bariatric surgery status; Z88.5 Allergy status to narcotic agent; Z88.8 Allergy status to other drugs, medicaments and biological substances; Z91.09 Other allergy status, other than to drugs and biological substances; Z79.899 Other long term (current) drug therapy; Z90.710 Acquired absence of both cervix and uterus
CPT/HCPCS: 45380; 45385; J2250; J3010; J2704; 88305

== ENCOUNTER → 2020-10-14 | Outpatient (CLI) | payer MEDICARE, OTHER ==
--- NOTE | 2020-10-17 10:38 | MM ---
Reason for exam: screening (asymptomatic). Last mammogram was performed 1 year and 1 month ago. History: Took hormonal contraceptives for 1 year beginning at age 20. Physical Findings: A clinical breast exam by your physician is recommended on an annual basis and results should be correlated with mammographic findings. MG 3D Screening Mammo W/Cad Bilateral CC and MLO view(s) were taken. Prior study comparison: September 02, 2019, bilateral MG 3d screening mammo w/cad. August 08, 2017, bilateral MG 3d screening mammo w/cad. The breast tissue is heterogeneously dense. This may lower the sensitivity of mammography. Benign appearing bilateral calcifications. There is chronic nodularity in the left breast. No significant changes when compared with prior studies. ASSESSMENT: Benign, BI-RAD 2 RECOMMENDATION: Routine screening mammogram of both breasts in 1 year.
== END | disposition home or self-care (01) ==
LOC: RADMAMWWP 08:12
PROVIDERS: ATTEND Family Medicine
DX: Z12.31 Encounter for screening mammogram for malignant neoplasm of breast (principal)
CPT/HCPCS: 77063; 77067

== ENCOUNTER → 2022-05-04 | Outpatient (CLI) | payer MEDICARE, OTHER ==
--- NOTE | 2022-05-07 10:51 | MM ---
Reason for Exam: Screening (asymptomatic). Last mammogram was performed 1 year(s) and 7 month(s) ago. Patient History: Menarche at age 13. First Full-Term at age 21. Right ovary removed at age 36. Hysterectomy at age 36. Hormonal Contraceptives for 1 year from age 20 until age 21. Risk Values: Naheed 5 year model risk: 0.9%. NCI Lifetime model risk: 7.8%. Prior Study Comparison: 08/08/2017 Bilateral Screening Mammogram, [facility]. 09/02/2019 Bilateral Screening Mammogram, [facility]. 10/14/2020 Bilateral Screening Mammogram, [facility]. Tissue Density: There are scattered fibroglandular densities. Findings: Analyzed By CAD. There is no suspicious group of microcalcifications or new suspicious mass in either breast. Overall Assessment: Negative, BI-RAD 1 Management: Screening Mammogram of both breasts in 1 year. A clinical breast exam by your physician is recommended on an annual basis and results should be correlated with mammographic findings. [facility] will attempt to contact patient to return for supplemental views and ultrasound if indicated. Electronically signed and approved by: Gume Izquierdo DO
== END | disposition home or self-care (01) ==
LOC: RADMAMWWP 09:15
PROVIDERS: ATTEND Family Medicine
DX: Z12.31 Encounter for screening mammogram for malignant neoplasm of breast (principal); Z90.721 Acquired absence of ovaries, unilateral
CPT/HCPCS: 77063; 77067